=== PATIENT | female | born 1985 | race Caucasian/White ===

== ENCOUNTER → 2016-09-23 07:33 | Outpatient (CLI) | payer MEDICAID ==
[2015-08-01 12:21] VITALS: BMI 19.6
[~2016-09-23 07:33] MED LIST: HYDROCODONE-APA1 TAB PO; LEVAQUIN250 MG PO; NEURONTIN800 MG PO; VALIUM 2 MG TAB2 MG PO
== END ==
LOC: D.MRI 07:33
DX: M54.16 Radiculopathy, lumbar region (principal)

== ENCOUNTER 2019-12-16 12:52 | Emergency (ER) | payer OTHER ==
[2019-12-16 13:17] VITALS: Ht 170.2 cm
[2019-12-16 13:34] LABS: BASOPHILS 0.3 % (0-2); EOSINOPHILS 3.3 % (0-7); HEMATOCRIT 37.1 % (36.0-48.0); HEMOGLOBIN 12.5 g/dL (12-16); IMMATURE GRANULOCYTES 0.1 % (0-5); LYMPHOCYTES 26.8 % (15-50); MCH 30.7 pg (26.0-34.0); MCHC 33.7 g/dL (31.0-37.0); MCV 91.2 fL (80.0-100.0); MEAN PLATELET VOLUME 11.5 fL (7.4-10.4); MONOCYTES 6.3 % (2-11); NEUTROPHILS 63.2 % (40-80); PLATELET COUNT 152 10x3/uL (130-400); RBC 4.07 10x6/uL (4.00-5.40); RDW 14.6 % (11.5-14.5)
[2019-12-16 13:57] LABS: ANION GAP 8.4 mmol/L (8-16); CALCIUM 8.6 mg/dL (8.5-10.1); CARBON DIOXIDE 28.1 mmol/L (21.0-32.0); POTASSIUM - SERUM 3.5 mmol/L (3.5-5.1)
[2019-12-16 14:02] LABS: BILIRUBIN NEGATIVE (NEGATIVE); KETONE NEGATIVE (NEGATIVE); NITRITE NEGATIVE (NEGATIVE); UROBILINOGEN NORMAL mg/dL (< 2)
[2019-12-16 14:03] LABS: BILIRUBIN - TOTAL 0.42 mg/dL (0.2-1.3); PROTEIN - SERUM 6.6 g/dL (6.4-8.2)
[2019-12-16 14:04] LABS: EPITHELIAL CELLS 0-5 /hpf (0-5); WHITE CELLS - URINE 0-5 HPF (0-4)
[2019-12-16 14:05] LABS: BACTERIA FEW HPF (NONE SEEN); HCG URINE NEGATIVE (NEGATIVE)
[2019-12-16] MEDS ORDERED: FLOMAX0.4 MG PO (15:36)
[2019-12-16] MEDS ORDERED: ZOFRAN ODT4 MG/UDTAB PO (15:36)
[2019-12-16] MEDS ORDERED: KEFLEX500 MG PO (15:42)
[2019-12-16 17:45] VITALS: BP 132/79
== END 2019-12-16 17:45 | disposition home or self-care (01) ==
LOC: D.ER 12:52
PROVIDERS: Family Medicine
DX: N13.39 Other hydronephrosis (principal); N13.2 Hydronephrosis with renal and ureteral calculous obstruction; R31.9 Hematuria, unspecified; R10.9 Unspecified abdominal pain